=== PATIENT | male | born 1930 | race Caucasian/White ===

== ENCOUNTER 2019-01-14 08:53 | Observation (INO) | payer MEDICARE, OTHER ==
[2019-01-14] MEDS ORDERED: Al Hydrox/Mg Hydrox/Simet LIQ* 30 ML UDC PO PRN (13:24)
[2019-01-14] MEDS ORDERED: Acetaminophen TAB* 325 MG PO PRN (13:24)
[2019-01-14] MEDS ORDERED: Dextrose 50% Syringe 50 ML* 25 GM/50 ML SYRINGE IV PUSH PRN (13:26)
[2019-01-14 14:18] LABS: ABS Basophils 0.1 10^3/ul (0-0.2); ABS Eosinophils 0.2 10^3/ul (0-0.6); ABS Lymphocytes 1.9 10^3/ul (1.0-4.8); ABS Monocytes 0.5 10^3/ul (0-0.8); ABS Neutrophils 3.6 10^3/ul (1.5-7.7); Eosinophil % 3.2 %; Hematocrit 39 % (42-52); Lymphocyte % 30.8 %; Mean Corpuscular HGB Conc 34 g/dL (31-36); Mean Corpuscular Hemoglobin 32 pg (27-31); Mean Corpuscular Volume 96 fL (80-94); Mean Platelet Volume 7.4 fL (7.4-10.4); Nucleated Red Blood Cells % 0.1; Platelet Count 215 10^3/uL (150-450); Red Blood Count 4.05 10^6 /uL (4.18-5.48); Red Cell Distribution Width 14 % (10-15); White Blood Count 6.3 10^3/uL (3.5-10.8)
[2019-01-14 14:34] LABS: Albumin 4.2 g/dL (3.2-5.2); Albumin/Globulin Ratio 1.4 (1-3); Calcium 9.6 mg/dL (8.6-10.3); EGFR Non-African American 60.3 (>60); Potassium 4.7 mmol/L (3.5-5.0); Total Bilirubin 0.5 mg/dL (0.2-1.0); Total Protein 7.2 g/dL (6.4-8.9)
--- NOTE | 2019-01-14 15:45 | CONS ---
ORTHOPEDIC CONSULTATION REPORT: DATE OF CONSULT: 01/14/19 HISTORY OF PRESENT ILLNESS: Leeroy is a pleasant 88-year-old gentleman, who came into my office today with a complaint of swollen, draining left toe. He is on metformin for his diabetes and he admits that he has not been very compliant with his diet, enjoying ice cream. He went to a theater performance 4 days ago in [place] and had a sense of pressure around his left third toe. Yesterday morning, he woke up with increased blistering and then after the shower noted that there was drainage from the third toe. He does not have any history, by his account, of any direct trauma. Dr. Shaw put him on some oral Keflex. PAST MEDICAL HISTORY: He has hyperlipidemia, hypertension, obesity, diabetes, and AFib. PAST SURGICAL HISTORY: He does have a pacemaker. MEDICATIONS: Leeroy is on a variety of medications outlined in the chart today. He is on: 1. Levothyroxine. 2. Amlodipine. 3. Metformin. 4. Ranitidine. 5. Lisinopril. 6. Pravastatin. ALLERGIES: He has no drug allergies that he is aware of. SOCIAL HISTORY: He is a retired consulting sales executive. PHYSICAL EXAM: Leeroy is heavyset at 5 feet 11 inches, 263 pounds, systolic 134 , afebrile, in no acute distress. Appropriate mood and affect. The left foot itself is not particularly swollen, neutral alignment noted, full range of motion. Skin envelope is intact except for the third toe, which is ecchymotic, blistered all the way down to the MTP level with erythema and nickolas serous drainage. He is also tender proximal to the metatarsal head between the second- third and third-fourth MTP joints. DIAGNOSTIC STUDIES: His radiograph of the left foot does not reveal any definitive erosions or fracturing. IMPRESSION AND PLAN: My impression is Mr. Stone has osteomyelitis and acute sepsis of his left third toe. I am not sure about his vascular supply and I would recommend ABIs. I also would recommend admission to the hospital for an MRI or CT scan if not allowed. We need to determine his healing level and whether there is pus going up into the intermetatarsal area. Orthopedics will follow. [id number]/[facility] #: [id number] [facility] HOSPITALEduardo
--- NOTE | 2019-01-14 16:09 | HP ---
CC: Dr. Shaw; Dr. Clinton, Orthopedic Surgery; Dr. Garces, Cardiology ; Dr. Phillips, Infectious Diseases * HISTORY AND PHYSICAL: DATE OF ADMISSION: 01/14/19 PRIMARY CARE PROVIDER: Dr. Shaw. CHIEF COMPLAINT: Left second toe infection. HISTORY OF PRESENT ILLNESS: Mr. Stone is an 88-year-old male with history of paroxysmal atrial fibrillation, status post pacemaker placement, dyslipidemia, diabetes who was seen by Dr. Clinton for a left third toe infection in the office. Dr. Clinton thought that the patient will require IV antibiotics and sent the patient to the hospital for direct admission that was accepted by the hospitalist service. 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 Approximately 7 days later, he started experiencing an uneasy sensation in the left foot feeling that his toes are "crossing." A couple of days later, he noted erythema and blister on his left second toe. He was placed on Keflex by his primary care provider approximately 24 hours ago and he received 4 doses of his medication. He denies any fevers. Dr. Clinton saw him in the office today and noted that he may require IV antibiotics for his cellulitis. PAST MEDICAL HISTORY: 1. History of paroxysmal atrial fibrillation. 2. Status post pacemaker placement. 3. Dyslipidemia. 4. Hypertension. 5. Gastroesophageal reflux disease. 6. Diverticulosis. 7. Diabetes type 2, noninsulin-dependent. 8. History of tonsillectomy. 9. Inguinal hernia repair. 10. Cataract surgery bilaterally. 11. History of total knee arthroplasties bilaterally with subsequent redo on 1 of the sides due to infection. 12. Appendectomy. MEDICATIONS: At home include: 1. Naproxen 220 mg daily. 2. Vitamin D3 2000 units daily. 3. Amlodipine 5 mg daily. 4. Levothyroxine 75 mcg daily. 5. Lisinopril/hydrochlorothiazide 20/12.5 mg daily. 6. Metformin 1000 mg b.i.d. 7. Pravachol 20 mg daily with meals. 8. Ranitidine 150 mg daily. ALLERGIES: No known drug allergies. FAMILY HISTORY: Mother with history of leukemia. Father at the age of 50 from an unknown cause. One sister with breast cancer, diabetes. SOCIAL HISTORY: The patient quit smoking over 20 years ago. He smoked a pipe for approximately 30 years. He denies any alcohol or drug use. He lives with his at [facility] which is a intermediate community. His is his surrogate, her first name is Delfina. He presented with do not resuscitate order. REVIEW OF SYSTEMS: Please see the history of present of illness. All the remaining 12 systems were reviewed with the patient and were otherwise negative. PHYSICAL EXAMINATION GENERAL: The patient is a pleasant 88-year-old male who in no acute distress. Alert, awake, and oriented x3. VITAL SIGNS: Blood pressure of 135/69, heart rate of 72 and regular, respiratory rate 18, oxygen saturation 96% on room air, temperature of 98.0. HEENT: Head: Atraumatic, normocephalic. Eyes: Pupils are equal and reactive to light and accommodation. Oropharynx is clear. Mucosa moist. NECK: Supple. No JVD. No bruits bilaterally. RESPIRATORY: Clear to auscultation bilaterally. CARDIOVASCULAR: Regular rate and rhythm. No murmur. ABDOMEN: Soft, nontender. Bowel sounds are present in all 4 quadrants. EXTREMITIES: There is no edema. Pulses are +2 bilaterally. No clubbing or cyanosis. NEUROLOGIC EVALUATION: Speech is clear. Cranial nerves II through XII are grossly intact. Motor strength is 5/5 bilaterally. SKIN: On evaluation of the skin, the patient's left third toe has erythema with increased warmth and rather a large blister overlying the left aspect of the toe over the entire length of the toe. It appears to be filled with purulent liquid. There is some venous stasis discoloration of the distal foot and slight cellulitis noted on the dorsal aspect of the distal foot on the left. DIAGNOSTIC STUDIES/LAB DATA: Laboratory data shows sodium of 140, potassium 4.7, chloride 104, carbon dioxide 26, BUN 22, creatinine 1.15. Liver function tests are unremarkable and glucose level 173. White blood cell count of 6.3, hemoglobin of 13.0, hematocrit of 39, MCV of 96, and platelets of 215. ABIs on the left side as well as CT of the left foot are pending at the time of dictation. ASSESSMENT AND PLAN: 1. For the patient's left foot cellulitis. The patient stated that he felt that he already improved somewhat on Keflex. I will continue cefazolin intravenously. The patient does not appear to be septic and he has not been febrile. I do not believe he needs blood cultures at this point. It will be beneficial for the patient to have an MRI, but he cannot have it due to his pacemaker. Instead, CT of the left foot is going to be obtained as well as THONG , although the patient appears to have good pulses on his evaluation. Dr. Clinton's service will follow up along with us. 2. For the patient's atrial fibrillation. Apparently, as per the patient, he is likely pacer dependent. He stated that he had hematuria in the past on anticoagulation with Pradaxa and that was discontinued. 3. For hypertension, the patient is going to be continued on his lisinopril/ hydrochlorothiazide and amlodipine. 4. For his diabetes type 2, the patient's metformin is going to be held and he is going to be placed on insulin sliding scale. 5. For DVT prophylaxis, the patient is going to be placed on heparin subcutaneously. 6. The patient's code status is do no resuscitate. TIME SPENT: Approximately 62 minutes was spent on admission of this patient; more than half that time was spent [id number] with the patient during the interview and physical exam. [id number]/[facility] #: [id number] FABIENNE
[2019-01-14] MEDS: ceFAZolin 1 GM ADVAN(*) 1 GM in NS 0.9% 50 ML* 50 ML IVPB SCH ×2 (17:27→21:00)
[2019-01-14] MEDS: Insulin LISPRO* 1 UNITS UNIT SUBCUT SCH ×2 (17:54→21:00)
[2019-01-14] MEDS: Senna TAB 8.6 mg* TAB PO SCH (21:00)
[2019-01-14] MEDS: Docusate CAP* 100 MG PO SCH (21:00)
[2019-01-15] MEDS: ceFAZolin 1 GM ADVAN(*) 1 GM in NS 0.9% 50 ML* 50 ML IVPB SCH ×4 (02:39→21:16)
[2019-01-15] MEDS: Levothyroxine TAB* 75 MCG TAB PO SCH (05:25)
[2019-01-15 08:00] LABS: Magnesium 1.6 mg/dL (1.9-2.7)
[2019-01-15] MEDS ORDERED: Naproxen TAB* 250 MG PO SCH (09:00)
[2019-01-15] MEDS: Senna TAB 8.6 mg* TAB PO SCH ×3 (09:08→21:08)
[2019-01-15] MEDS: Lisinopril TAB* 10 MG PO SCH (09:08)
[2019-01-15] MEDS: Docusate CAP* 100 MG PO SCH ×2 (09:08→21:08)
[2019-01-15] MEDS: Hydrochlorothiazide TAB* 25 MG PO SCH (09:08)
[2019-01-15] MEDS: Insulin LISPRO* 1 UNITS UNIT SUBCUT SCH ×4 (09:09→21:41)
[2019-01-15] MEDS: amLODIPine TAB* 5 MG PO SCH (09:09)
[2019-01-15] MEDS: Naproxen TAB* 250 MG PO SCH (09:21)
--- NOTE | 2019-01-15 10:54 | PN ---
Subjective Date of Service: 01/15/19 Interval History: Pt feels well, seems that the left toe is improving. No pain, less erythema noted Objective Active Medications: Acetaminophen (Tylenol Tab*) 650 mg PO Q4H PRN PRN Reason: Fever>100.9/Pain Al Hydrox/Mg Hydrox/Simethicone (Maalox Plus*) 30 ml PO Q6H PRN PRN Reason: INDIGESTION Amlodipine Besylate (Norvasc Tab*) 5 mg PO DAILY [facility] Last Admin: 01/15/19 09:09 Dose: 5 mg Dextrose (D50w Syringe 50 Ml*) 12.5 gm IV PUSH .FOR FS < 60 - SS PRN PRN Reason: FS < 60 Docusate Sodium (Colace Cap*) 100 mg PO BID [facility] Last Admin: 01/15/19 09:08 Dose: 100 mg Hydrochlorothiazide (Hydrodiuril Tab*) 12.5 mg PO DAILY [facility] Last Admin: 01/15/19 09:08 Dose: 12.5 mg Cefazolin Sodium 1 gm/ Sodium (Chloride) 50 mls @ 200 mls/hr IVPB Q6H [facility] Last Admin: 01/15/19 09:09 Dose: 200 mls/hr Insulin Human Lispro (Humalog*) 0 units SUBCUT ACHS [facility]; Protocol Last Admin: 01/15/19 09:09 Dose: 1 units Levothyroxine Sodium (Synthroid Tab*) 75 mcg PO 0600 [facility] Last Admin: 01/15/19 05:25 Dose: 75 mcg Lisinopril (Prinivil Tab*) 20 mg PO DAILY [facility] Last Admin: 01/15/19 09:08 Dose: 20 mg Naproxen (Naprosyn Tab*) 250 mg PO DAILY [facility] Last Admin: 01/15/19 09:21 Dose: 250 mg Senna (Senokot Tab*) 1 tab PO BID [facility] Last Admin: 01/15/19 09:09 Dose: 1 tab Vital Signs - 8 hr 01/15/19 01/15/19 03:15 08:12 Temperature 98.3 F 97.5 F Pulse Rate 70 70 Respiratory 14 20 Rate Blood Pressure 115/62 141/72 (mmHg) O2 Sat by Pulse 93 94 Oximetry Oxygen Devices in Use Now: None Appearance: 88 yo M in nAD, aAOx3 Eyes: No Scleral Icterus, PERRLA Ears/Nose/Mouth/Throat: NL Teeth, Lips, Gums, Mucous Membranes Moist Neck: NL Appearance and Movements; NL JVP Respiratory: Symmetrical Chest Expansion and Respiratory Effort, Clear to Auscultation Cardiovascular: NL Sounds; No Murmurs; No JVD, RRR Lymphatic: No Cervical Adenopathy Extremities: No Edema, No Clubbing, Cyanosis Skin: - - left 2 nd toe erythema and large 3 cm blister on left side of toe filled with purulent fluid, erythema dorsum of distal left foot at 5 cm in diam , nonblanchable with mid increase in warmth Neurological: Alert and Oriented x 3, NL Muscle Strength and Tone Result Diagrams: 01/14/19 14:06 01/14/19 14:06 Assess/Plan/Problems-Billing Assessment: 88 yo M with PAF(not on anticoagulation due to h/o hematuria), DM2, HTN , pacemaker, hypothyroidism ,presents with toe cellulitis - Patient Problems (1) Cellulitis of toe of left foot Comment: appears to be improving on Cefazolin appreciate ID/ortho consults CRP pending CT of foot shows no osteo. Cannot have MRI due to pacer THONG's show mild PAD (2) DM2 (diabetes mellitus, type 2) Comment: holding metformin, cont iSS (3) HTN (hypertension) Comment: controlled cont Norvasc, HCTZ (4) PAF (paroxysmal atrial fibrillation) Comment: in NSR (5) Hypothyroidism Comment: cont home synthroid (6) DVT prophylaxis Comment: HSQ Status and Disposition: inpatient
[2019-01-15] MEDS: Heparin VIAL(*) 5000 UNITS/ML VIAL (FIVE THOUSAND) SUBCUT SCH ×2 (13:22→21:14)
--- NOTE | 2019-01-15 13:49 | CONS ---
CC: Dr. Navdeep Phillips * CONSULTATION REPORT: DATE OF ADMISSION: 01/14/19 DATE OF CONSULTATION: 01/15/19 PRIMARY CARE PROVIDER: Dr. Shaw. PROVIDER REQUESTING CONSULTATION: BRAEDEN Eagle CONSULTING SERVICE: Infectious Disease. PROVIDER: Terese Gant NP ATTENDING PHYSICIAN: Dr. Navdeep Phillips.* (dictated by Terese Gant NP) REASON FOR CONSULTATION: Left foot infection. IMPRESSION: 1. Left foot cellulitis involving the third toe. According to the patient, the wound has only been in place for 2 days. He had a CT showing no signs of fluid collection or abscess. No signs of osteomyelitis on the CT scan. The foot is improving on cefazolin. The patient is nontoxic appearing. He is not meeting sepsis criteria. The patient is unable to have an MRI due to his pacemaker. He had ABIs that showed slightly decreased flow. He is afebrile with no leukocytosis. The patient feels that overall his foot is improving. 2. Diabetes mellitus type 2. RECOMMENDATIONS/PLAN: Recommend continuing cefazolin while the patient is here. If he is improving on cefazolin, I do not feel that he had antibiotic failure as he only received 1 day of antibiotics prior to his presentation. We will treat him for a 10- to 14-day course of Keflex outpatient. We could consider getting an MRI outpatient if he continues to have a wound and continues to not have improvement on oral antibiotics to evaluate for an underlying osteomyelitis. (if we are able to do MRIs outpatient with his type of pacemaker). Currently a low suspicion for osteomyelitis at this time due to the short amount of time that the wound has been present on the toe. He should continue to follow closely with Dr. Clinton outpatient. He can followup with ID outpatient in 1 week also. HISTORY OF PRESENT ILLNESS: Mr. Stone is an 88-year-old male with past medical history significant for paroxysmal atrial fibrillation, status post pacemaker placement, dyslipidemia, diabetes mellitus type 2, hypertension, GERD. 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 Approximately 1 week after that, he started experiencing some unusual sensations in the left foot feeling as though his toes were crossing. He states that this occurred on Friday after he had been out and about. When he got home, he took off his socks and shoes and looked and everything was okay. The toes were not actually crossed and everything looked fine. On Friday 2 days ago, he developed some erythema and a blister to the left second toe. He was seen by his primary care provider and was started on Keflex. He reports taking 4 doses and then being seen in consultation by Dr. Clinton in the office, who felt that he may require IV antibiotics for cellulitis. He was sent to the hospital for a direct admission. While in the hospital, the patient has been on cefazolin, had no leukocytosis, has been afebrile. He had lower extremity arterial studies showing mild decrease of the digital brachial indices bilateral with normal waveform suggestive of mild peripheral arterial occlusive disease. His left posterior tibial ankle-brachial index was 1.16, but the dorsalis pedis ankle-brachial index 1.12 and the digital brachial index 0.71 with triphasic waveforms. Additionally, he had a left lower extremity CT scan showing a soft tissue swelling greatest at the third toe without subcutaneous emphysema or visualized loculated abscess collection within limits of noncontrast CT, negative for CT stigmata of osteomyelitis. There were no abscesses or fluid collections noted. The foot has improved well on cefazolin. He denies any pain. He denies fevers, chills, joint pain, muscle pain, nausea, vomiting, diarrhea, constipation, urinary symptoms such as urgency, frequency, dysuria. He denies recent travel. Again, overall he feels that the erythema is improving in the leg since admission. PAST MEDICAL HISTORY: Significant for: 1. Paroxysmal atrial fibrillation. 2. Hypertension. 3. Hyperlipidemia. 4. GERD. 5. Diverticulosis. 6. Diabetes mellitus type 2. 7. Obesity. 8. History of infected left total knee arthroplasty, status post explant and long course of IV antibiotics. PAST SURGICAL HISTORY: 1. Status post pacemaker insertion. 2. Status post tonsillectomy. 3. Status post bilateral cataract extractions. 4. Status post bilateral total knee arthroplasties and reimplantation of the left knee due to infection. 5. Status post appendectomy. MEDICATIONS: Home medications: 1. Naproxen 220 mg by mouth daily. 2. Vitamin D 2000 units by mouth daily. 3. Amlodipine 5 mg daily. 4. Levothyroxine 75 mcg by mouth daily. 5. Lisinopril/hydrochlorothiazide 20/12.5 one tablet by mouth daily. 6. Metformin 1000 mg by mouth daily. 7. Pravastatin 20 mg by mouth daily with meals. 8. Ranitidine 1 tablet by mouth daily. Hospital medications: 1. Acetaminophen 650 mg by mouth every 4 hours as needed for fever or pain. 2. Maalox Plus 30 mL by mouth every 6 hours as needed for indigestion. 3. Amlodipine 5 mg by mouth daily. 4. Cefazolin 1 g IV every 6 hours. 5. Dextrose 12.5 mg IV push for glucose less than 60. 6. Colace 100 mg by mouth twice daily. 7. Heparin sodium 5000 units subcutaneous every 8 hours. 8. Hydrochlorothiazide 12.5 mg by mouth daily. 9. Humalog insulin sliding scale subcutaneous with meals and at bedtime. 10. Levothyroxine 75 mcg by mouth daily. 11. Naproxen 250 mg by mouth daily. 12. Lisinopril 20 mg by mouth daily. 13. Senokot 1 tablet by mouth twice daily. ALLERGIES: No known drug allergies. FAMILY HISTORY: Father passed from unknown cause at age 50. No family history of coronary artery disease. Sister with a history of diabetes and breast cancer. Mother with a history of leukemia. SOCIAL HISTORY: He denies tobacco, alcohol, or recreational drug use. He is a former smoker. He quit smoking approximately 20 years ago. Prior to that, he had a 30-year tobacco pipe smoking history. REVIEW OF SYSTEMS: I performed a 10-point review of systems. All the pertinent positives and negatives are mentioned in the history of present illness. The remaining review of systems are negative. PHYSICAL EXAMINATION: Vital Signs: Temperature 97.5, heart rate 70, respiratory rate 20, O2 sat 94% on room air, blood pressure 141/72. General Appearance: The patient is very pleasant, appears to be in no acute distress. Head: Normocephalic, atraumatic. ENT: Pupils equal, reactive to light. Extraocular movements are intact. No subconjunctival hemorrhage. Mucous membranes are moist. Neck: Supple. No lymphadenopathy. Neurological: Alert and oriented x4. Cranial nerves II through XII are grossly intact. Cardiovascular: Regular rate and rhythm. S1, S2 present. No murmurs, rubs, or gallops heard. Respiratory: No accessory muscle use. Lungs are clear to auscultation bilateral. Abdomen: Bowel sounds present x4. Abdomen is large, soft, nontender, and nondistended. Extremities: No lower extremity edema. DP and PT pulses are 1+ and symmetric. Musculoskeletal: No clubbing or cyanosis noted. Exhibits good strength in all extremities. Psychological: Calm and cooperative. Skin: There are no rashes seen. There is mild erythema to the left third toe with some erythema and what appears to be venous stasis discoloration to the distal forefoot. There is a large blister on the lateral aspect of the third toe covering the toe. This appears to have collapsed on itself. No drainage from the area. DIAGNOSTIC STUDIES/LABORATORY DATA: From yesterday: Sodium 140, potassium 4.7 , chloride 104, CO2 26, BUN 23, creatinine 1.15, glucose 173. White blood cell count 6.3, hemoglobin 13.0, hematocrit 39, platelet count 215. Please see impression and recommendations outlined above which have been discussed with Dr. Peters and BRAEDEN Williamson Thank you for asking us to see Mr. Stone in consultation. Reviewed by NEDA HAMMER-Richy 01/18/191913 [id number]/[facility] #: [id number] MTDD
--- NOTE | 2019-01-15 15:23 | PN ---
Progress Note - Progress Note Date of Service: 01/15/19 SOAP: Subjective: []Patient seen at bedside. and son present at bedside. Mr. Stone states his toe is not painful and feels it is improving on antibiotics. He is hoping he will be able to be discharged home soon. Objective: [] Vital Signs Temp 98.3 F 01/15/19 12:06 Pulse 70 01/15/19 12:06 Resp 16 01/15/19 12:06 BP 130/68 01/15/19 12:06 Pulse Ox 94 01/15/19 12:06 Intake & Output 01/14/19 01/15/19 01/15/19 18:59 06:59 18:59 Intake Total 77 390 1060 Balance 77 390 1060 Weight 265 lb 10.512 oz Intake: IV Fluids 17 150 NS 17 50 cefazolin 100 IVPB 60 cefazolin 60 Oral 240 1060 Other: Date of Last Bowel 01/14/19 Movement # Bowel Movements 2 # Voids 2 Laboratory Results - last 24 hr 01/14/19 01/14/19 01/14/19 14:06 17:31 19:51 APTT Sodium 140 Potassium 4.7 Chloride 104 Carbon Dioxide 26 Anion Gap 10 BUN 23 Creatinine 1.15 Est GFR ( Amer) 73.0 Est GFR (Non-Af Amer) 60.3 BUN/Creatinine Ratio 20.0 Glucose 173 H POC Glucose (mg/dL) 154 H 144 H Calcium 9.6 Magnesium 1.6 L Total Bilirubin 0.50 AST 17 ALT 14 Alkaline Phosphatase 48 Total Protein 7.2 Albumin 4.2 Globulin 3.0 Albumin/Globulin Ratio 1.4 01/15/19 01/15/19 01/15/19 07:51 12:19 13:36 APTT 42.0 H Sodium Potassium Chloride Carbon Dioxide Anion Gap BUN Creatinine Est GFR ( Amer) Est GFR (Non-Af Amer) BUN/Creatinine Ratio Glucose POC Glucose (mg/dL) 150 H 151 H Calcium Magnesium Total Bilirubin AST ALT Alkaline Phosphatase Total Protein Albumin Globulin Albumin/Globulin Ratio left foot donning post operative shoe for ambulation- comfortable left 3 rd toe with flattened blister, mild erythema proximal toe, no erythema into foot, no fluctuance or induration, no tenderness to palpation throughout the entire toe. No tenderness of the metatarsals. Assessment: []cellulitis/ healing blister left 3 rd toe Plan: []unable to have MRI due to pacemaker, CT fails to show deep abscess or bony changes/ osteomyelitis. Clinically improving overall ID consult appreciated Will continue with IV Ancef and continue to monitor for ongoing improvement Possible discharge to home 1-2 days on Keflex Follow up with Dr. Clinton 1 week
[2019-01-15 19:42] LABS: C Reactive Protein 7.35 mg/L (<8.01)
[2019-01-16] MEDS: ceFAZolin 1 GM ADVAN(*) 1 GM in NS 0.9% 50 ML* 50 ML IVPB SCH ×2 (02:33→08:22)
[2019-01-16] MEDS: Levothyroxine TAB* 75 MCG TAB PO SCH (06:30)
[2019-01-16] MEDS: Heparin VIAL(*) 5000 UNITS/ML VIAL (FIVE THOUSAND) SUBCUT SCH (06:30)
[2019-01-16 06:54] LABS: Hematocrit 40 % (42-52); Hemoglobin 14.1 g/dL (14.0-18.0); Mean Corpuscular HGB Conc 35 g/dL (31-36); Mean Corpuscular Hemoglobin 33 pg (27-31); Mean Corpuscular Volume 95 fL (80-94); Mean Platelet Volume 7.6 fL (7.4-10.4); Platelet Count 192 10^3/uL (150-450); Red Blood Count 4.22 10^6 /uL (4.18-5.48); Red Cell Distribution Width 14 % (10-15)
[2019-01-16 06:58] LABS: BUN/Creatinine Ratio 22.3 (8-20); C Reactive Protein 4.62 mg/L (<8.01); Calcium 10.2 mg/dL (8.6-10.3); EGFR African American 75.2 (>60); EGFR Non-African American 62.2 (>60); Potassium 4.8 mmol/L (3.5-5.0)
[2019-01-16] MEDS: Insulin LISPRO* 1 UNITS UNIT SUBCUT SCH (08:04)
[2019-01-16] MEDS: Hydrochlorothiazide TAB* 25 MG PO SCH (08:05)
[2019-01-16] MEDS: Naproxen TAB* 250 MG PO SCH (08:09)
[2019-01-16] MEDS: Lisinopril TAB* 10 MG PO SCH (08:09)
[2019-01-16] MEDS: Docusate CAP* 100 MG PO SCH (08:10)
[2019-01-16] MEDS: Senna TAB 8.6 mg* TAB PO SCH (08:10)
[2019-01-16 08:12] VITALS: BP 127/71
[2019-01-16] MEDS: amLODIPine TAB* 5 MG PO SCH (08:20)
--- NOTE | 2019-01-16 12:24 | DS ---
CC: Dr. Shaw; Dr. Phillips; Dr. Clinton; BRAEDEN Elder * DISCHARGE SUMMARY: DATE OF ADMISSION: 01/14/19. DATE OF DISCHARGE: 01/16/19. PRIMARY CARE PROVIDER: Dr. Shaw. DISPOSITION AT DISCHARGE: Home. CONDITION ON DISCHARGE: Stable. DISCHARGE DIAGNOSIS: Left third toe cellulitis. SECONDARY DIAGNOSES: 1. History of diabetes type 2. 2. History of paroxysmal atrial fibrillation, not on anticoagulation. 3. History of pacemaker placement. 4. Dyslipidemia. 5. Hypertension. 6. Gastroesophageal reflux disease. 7. Diverticulosis. MEDICATIONS AT DISCHARGE: Include: 1. Keflex 500 mg 4 times a day for a total of 10 days, and then stop. 2. Amlodipine 5 mg daily. 3. Vitamin D 2000 units daily. 4. Levothyroxine 75 mcg daily. 5. Lisinopril/hydrochlorothiazide 20/12.5 one tablet daily. 6. Metformin 1000 mg b.i.d. 7. Naproxen 220 mg daily p.r.n. 8. Pravachol 20 mg daily. 9. Ranitidine 150 mg daily. LABORATORY DATA AND STUDIES PERFORMED DURING THE HOSPITAL STAY: Include: On , sodium 138, potassium 4.8, chloride 102, carbon dioxide 28, BUN 25, creatinine 1.12. C-reactive protein on the day of discharge was 4.6. CBC on 01/16/19, shows white blood cell count 6.0, hemoglobin of 14.1, hematocrit of 40, MCV of 95, and platelet count of 192. Wound cultures are pending, but are Staph aureus negative and MRSA negative so for. CT of lower extremity obtained on 01/14/19, impression: "Soft tissue swelling greatest at the third toe without subcutaneous emphysema or visualized loculated abscess collection within limits of noncontrast CT. Negative for CT stigmata of osteomyelitis; however, MRI, in the setting of contraindication to MRI, 3-phase bone scan would be more sensitive for osteomyelitis is clinically indicated." Arterial Doppler's of left lower extremity obtained on 01/14/19, impression: "There is a mild decrease of the digital brachial indices bilaterally with normal waveforms suggestive of mild peripheral arterial occlusive disease though this may be artificially underestimated in the setting of arteriosclerosis given the history of diabetes." CONSULTATION DURING THE HOSPITAL STAY: Include: Dr. Clinton from Orthopedic Surgery. Dr. Phillips and Terese Dudley from Infectious Diseases. HOSPITALIZATION COURSE: Mr. Stone is an 88-year-old male, who presented to the hospital complaining of cellulitis of the left third toe, sent from Dr. Clinton's office. Initially, there was concern for possibility of osteomyelitis. Unfortunately, the patient has a pacemaker and he was not a candidate for MRI. A CT of the toe did not show any stigmata of osteomyelitis. Arterial Doppler study did not show any marked vascular disease, but possibility of mild vascular disease was noted. The patient's C-reactive protein on the day of admission was 6 and it went down to 4 at the time of discharge. The patient was seen by Infectious Diseases as well as orthopedic service. He was continued with cefazolin throughout his hospital stay and he was going to be placed back on Keflex at the discharge. Throughout his hospital stay, the erythema that surrounded the distal dorsal aspect of the left foot and the blister of the left third toe started resolving. Overall, the toe looks much improved from prior. The patient is going to be discharged with recommendations to follow up with primary care provider and Dr. Clinton in approximately 4 to 7 days. PHYSICAL EXAMINATION: At the time of discharge, blood pressure 127/71, heart rate of 70 and regular, respiratory rate 17, oxygen saturation 96% on room air, temperature 96.2. General: The patient is a very pleasant 88-year-old male, who is in no acute distress. Alert, awake, and oriented x3. HEENT: Head: Atraumatic, normocephalic. Eyes: Pupils are equal, reactive to light and accommodation. Oropharynx clear. Mucosa moist. Neck: Supple. No JVD. No bruits bilaterally. Cardiovascular: Regular rate and rhythm. No murmur. Respiratory: Clear to auscultation bilaterally. Abdomen: Soft, nontender. Bowel sounds are present in 4 quadrants. Extremities: There is no edema. Pulses are +2 bilaterally. There is no clubbing, cyanosis. Evaluation of the skin on the dorsal distal aspect of left lower extremity, there is nonblanchable erythema that is much improved from before and cellulitis that is resolving. The cellulitis and erythema of the left third toe is also improved and the blister on the lateral aspect of the left third toe was punctured and evacuated, and is healing. Please note that this is a short summary of the patient's hospitalization. Please refer to further medical records for details. TIME SPENT: Approximately, 35 minutes was spent on the patient's discharge. [id number]/[facility] #: [id number] MTDD
== END 2019-01-16 10:25 | disposition home or self-care (01) | DRG 603 ==
LOC: MED 08:53 → OBSVTOIN 01-15 08:53 → INTOOBSV 01-15 08:53
PROVIDERS: ADMIT Internal Medicine; ATTEND Internal Medicine
DX: L03.032 Cellulitis of left toe (principal); I48.0 Paroxysmal atrial fibrillation; E11.9 Type 2 diabetes mellitus without complications; E78.5 Hyperlipidemia, unspecified; K21.9 Gastro-esophageal reflux disease without esophagitis; I10 Essential (primary) hypertension; E03.9 Hypothyroidism, unspecified; E66.9 Obesity, unspecified; K57.90 Diverticulosis of intestine, part unspecified, without perforation or abscess without bleeding; Z95.0 Presence of cardiac pacemaker; Z79.84 Long term (current) use of oral hypoglycemic drugs; Z80.6 Family history of leukemia; Z68.37 Body mass index [BMI] 37.0-37.9, adult; Z83.3 Family history of diabetes mellitus; Z87.891 Personal history of nicotine dependence
CPT/HCPCS: 36415; 80048; 80053; 83735; 85025; 85027; 85730; 86140; 87070; 87077; 87186; 87205; 87640; 87641; 93922; A9270-GY; G0378; J0690; J1644